=== PATIENT | female | born 1975 | race Two or more races ===

== ENCOUNTER 2021-02-05 14:26 | Emergency (ER) | payer SELFPAY ==
[~2021-02-05] VITALS: Ht 172.7 cm; Wt 56.8 kg
[2021-02-05 14:37] VITALS: BP 114/77
== END 2021-02-05 16:36 | disposition left against medical advice (07) ==
LOC: EMS 15:15
DX: H57.89 Other specified disorders of eye and adnexa (principal); Z53.21 Procedure and treatment not carried out due to patient leaving prior to being seen by health care provider

== ENCOUNTER 2021-02-13 10:35 | Emergency (ER) | payer SELFPAY ==
[~2021-02-13] VITALS: Ht 172.7 cm; Wt 57.3 kg
[2021-02-13 10:45] VITALS: BP 138/99
== END 2021-02-13 11:20 | disposition home or self-care (01) ==
LOC: EMS 10:37
DX: H57.11 Ocular pain, right eye (principal); Z53.21 Procedure and treatment not carried out due to patient leaving prior to being seen by health care provider

== ENCOUNTER 2021-02-13 13:30 | Emergency (ER) | payer SELFPAY ==
[~2021-02-13] VITALS: Ht 172.7 cm; Wt 57.3 kg
[2021-02-13 13:32] VITALS: BP 140/99
== END 2021-02-13 14:00 | disposition left against medical advice (07) ==
LOC: EMS 13:58
DX: H57.11 Ocular pain, right eye (principal); Z53.21 Procedure and treatment not carried out due to patient leaving prior to being seen by health care provider

== ENCOUNTER 2021-02-14 07:39 | Emergency (ER) | payer SELFPAY ==
[~2021-02-14] VITALS: Ht 177.8 cm; Wt 63.6 kg
[2021-02-14 07:50] VITALS: BP 124/72
== END 2021-02-14 09:34 | disposition left against medical advice (07) ==
LOC: EMS 07:41
DX: H57.11 Ocular pain, right eye (principal); Z53.21 Procedure and treatment not carried out due to patient leaving prior to being seen by health care provider